=== PATIENT | male | born 1960 | race Caucasian/White ===

== ENCOUNTER 2017-04-05 09:41 | Emergency (ER) | payer OTHER ==
[~2017-04-05] VITALS: Ht 177.8 cm; Wt 68.1 kg
[2017-04-05 09:43] VITALS: BP 135/79; PULSE 109; RESP 16; TEMP 98.3; O2SAT 97
[2017-04-05] MEDS ORDERED: LEVO.05 PO (09:57)
[2017-04-05] MEDS ORDERED: PRIL20TA2 PO (09:57)
[2017-04-05] MEDS ORDERED: SODIUM CHLOR 0.9% 1000 ML INJ 1,000 ML IV SCH (10:03)
--- NOTE | 2017-04-05 10:06 | PD ---
HPI Chief Complaint: GI Complaint Time Seen by Provider: 09:47 Travel History International Travel<30 days: No Contact w/Intl Traveler<30days: No Traveled to known affect area: No History of Present Illness HPI Patient is a 57-year-old male presents with abdominal cramping nausea and nonbilious nonbloody vomiting as well as diarrhea since last night. The patient states she's been worked up for recurring episodes like this which happens about every 6-8 weeks. They're currently visiting from [place] for the holidays. Denies any blood in the stool melena stool, he states she's had colonoscopies last was 2 and half years ago and it got some polyps, states she' s also had several CAT scans and they can't figure out what's going on. 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 No other close sick contacts. No recent antibiotic use. States she's been having chills and sweats but no objective fevers. States his symptoms are moderate to severe, gradually worsening, context as above, associated signs symptoms as above. PFSH Past Medical History GERD: Yes Thyroid Disease: Yes Past Surgical History Cholecystectomy: Yes Social History Alcohol Use: Yes Tobacco Use: Yes (1PPD) Substance Use: No Allergies-Medications (Allergen,Severity, Reaction): Coded Allergies: Penicillins (Verified Allergy, Intermediate, rash, 04/05/17) Reported Meds & Prescriptions Reported Meds & Active Scripts Active Phenergan (Promethazine HCl) 25 Mg Tablet 25 Mg PO Q6H PRN Zofran (Ondansetron HCl) 4 Mg Tab 4 Mg PO Q6HR PRN Omeprazole 40 Mg Cap 40 Mg PO DAILY Bentyl (Dicyclomine HCl) 10 Mg Cap 10 Mg PO TID PRN Reported Prilosec (Omeprazole Magnesium) 20 Mg Tab 40 Mg PO DAILY Synthroid (Levothyroxine Sodium) 50 Mcg Tab 50 Mcg PO DAILY Review of Systems Except as stated in HPI: all other systems reviewed are Neg Physical Exam Narrative GENERAL: Well-developed well-nourished, smells of cigarette smoke in no obvious distress. SKIN: Warm and dry. HEAD: Atraumatic. Normocephalic. EYES: Pupils equal and round. No scleral icterus. No injection or drainage. ENT: No nasal bleeding or discharge. Mucous membranes pink and moist. NECK: Trachea midline. No JVD. CARDIOVASCULAR: Regular rate and rhythm. RESPIRATORY: No accessory muscle use. Clear to auscultation. Breath sounds equal bilaterally. GASTROINTESTINAL: Abdomen soft, non-tender, nondistended. Hepatic and splenic margins not palpable. Bowel sounds normal active. MUSCULOSKELETAL: Extremities without clubbing, cyanosis, or edema. No obvious deformities. NEUROLOGICAL: Awake and alert. No obvious cranial nerve deficits. Motor grossly within normal limits. Five out of 5 muscle strength in the arms and legs. Normal speech. PSYCHIATRIC: Appropriate mood and affect; insight and judgment normal. Data Data Last Documented VS Orders Orders Complete Blood Count With Diff (04/05/17 10:03) Comprehensive Metabolic Panel (04/05/17 10:03) Lipase (04/05/17 10:03) Iv Access Insert/Monitor (04/05/17 10:03) Ecg Monitoring (04/05/17 10:03) Oximetry (04/05/17 10:03) Ondansetron Inj (Zofran Inj) (04/05/17 10:15) Sodium Chlor 0.9% 1000 Ml Inj (Ns 1000 M (04/05/17 10:03) Sodium Chloride 0.9% Flush (Ns Flush) (04/05/17 10:15) Dicyclomine (Bentyl) (04/05/17 10:15) Potassium Chloride (Kcl) (04/05/17 10:45) Promethazine Inj (Phenergan Inj) (04/05/17 11:00) Ed Discharge Order (04/05/17 11:01) Potassium Chlor 10 Meq Premix (Kcl 10 Me (04/05/17 11:15) Labs Laboratory Tests Test 04/05/17 10:10 White Blood Count 10.7 TH/MM3 Red Blood Count 5.20 MIL/MM3 Hemoglobin 15.1 GM/DL Hematocrit 46.3 % Mean Corpuscular Volume 89.1 FL Mean Corpuscular Hemoglobin 29.0 PG Mean Corpuscular Hemoglobin Concent 32.5 % Red Cell Distribution Width 13.1 % Platelet Count 267 TH/MM3 Mean Platelet Volume 8.1 FL Neutrophils (%) (Auto) 75.0 % Lymphocytes (%) (Auto) 13.8 % Monocytes (%) (Auto) 10.7 % Eosinophils (%) (Auto) 0.1 % Basophils (%) (Auto) 0.4 % Neutrophils # (Auto) 8.1 TH/MM3 Lymphocytes # (Auto) 1.5 TH/MM3 Monocytes # (Auto) 1.1 TH/MM3 Eosinophils # (Auto) 0.0 TH/MM3 Basophils # (Auto) 0.0 TH/MM3 CBC Comment DIFF FINAL Differential Comment Blood Urea Nitrogen 22 MG/DL Creatinine 1.10 MG/DL Random Glucose 113 MG/DL Total Protein 7.6 GM/DL Albumin 3.6 GM/DL Calcium Level 8.1 MG/DL Alkaline Phosphatase 105 U/L Aspartate Amino Transf (AST/SGOT) 26 U/L Alanine Aminotransferase (ALT/SGPT) 31 U/L Total Bilirubin 0.8 MG/DL Sodium Level 132 MEQ/L Potassium Level 2.8 MEQ/L Chloride Level 93 MEQ/L Carbon Dioxide Level 28.3 MEQ/L Anion Gap 11 MEQ/L Estimat Glomerular Filtration Rate 69 ML/MIN Lipase 130 U/L MDM Medical Decision Making Medical Screen Exam Complete: Yes Emergency Medical Condition: Yes Differential Diagnosis Chronic colitis, dehydration, gastritis, gastric enteritis, pancreatitis, acute abdomen unlikely. Narrative Course Patient roomed emergency department, he appears quite comfortable in no obvious distress. States that his symptoms are severe, was given medication and on revisit seemed to be sleeping soundly, one on closer approach she actually stated he was feeling no different, only notable abnormality on lab work is some mild dehydration as evidenced by sodium 132 and potassium at 2.8, liter fluid and potassium was given IV after the patient vomited up by mouth potassium. Ultimately after second dose of antiemetics the patient was feeling much better. He inquires that this could be stress, or anxiety. I discussed with him that certainly does not appear to be anything emergent at this time. He's had multiple CAT scans in the past and given his benign abdomen I recommended against this time is stacking up radiation can lead to malignancy. He verbalized understanding and agreement. He is stable for discharge, discussed symptomatic management returned ED criteria follow-up his primary care physician for further workup. Diagnosis Primary Impression: Nausea Med/Other Pt SpecificInfo: Prescription(s) given Scripts Promethazine (Phenergan) 25 Mg Tablet 25 MG PO Q6H Y for NAUSEA OR VOMITING, #20 TAB 0 Refills Prov: El Chinchilla MD 04/05/17 Ondansetron (Zofran) 4 Mg Tab 4 MG PO Q6HR Y for NAUSEA OR VOMITING, #20 TAB 0 Refills Prov: El Chinchilla MD 04/05/17 Omeprazole (Omeprazole) 40 Mg Cap 40 MG PO DAILY, #30 CAP 0 Refills Prov: El Chinchilla MD 04/05/17 Dicyclomine (Bentyl) 10 Mg Cap 10 MG PO TID Y for Bowel Management, #20 CAP 0 Refills Prov: El Chinchilla MD 04/05/17 Disposition: 01 DISCHARGE HOME Condition: Stable El Chinchilla MD Apr 05, 2017 10:06
[2017-04-05] MEDS ORDERED: DICYCLOMINE HCL 10 MG CAP PO ONE (10:15)
[2017-04-05] MEDS ORDERED: SODIUM CHLORIDE 0.9% FLUSH 10 ML FLUSH IV FLUSH PRN (10:15)
[2017-04-05] MEDS ORDERED: ONDANSETRON HCL 4 MG/2 ML VIAL IVP ONE (10:15)
[2017-04-05 10:19] VITALS: O2SAT 95
[2017-04-05 10:23] VITALS: BP 111/89; PULSE 81; RESP 20; O2SAT 99
[2017-04-05 10:29] LABS: AUTOMATED NEUTROPHIL # 8.1 TH/MM3 (1.8-7.7); BASOPHIL % 0.4 % (0.0-2.0); EOSINOPHIL % 0.1 % (0.0-4.0); HEMATOCRIT 46.3 % (39.0-51.0); HEMOGLOBIN 15.1 GM/DL (13.0-17.0); LYMPH % 13.8 % (9.0-44.0); LYMPHOCYTE # 1.5 TH/MM3 (1.0-4.8); MEAN CELL VOLUME 89.1 FL (80.0-100.0); MEAN CORPUSCULAR HGB CONC 32.5 % (32.0-36.0); MEAN PLATELET VOLUME 8.1 FL (7.0-11.0); MONO % 10.7 % (0.0-8.0); MONOCYTE # 1.1 TH/MM3 (0-0.9); PLATELET COUNT 267 TH/MM3 (150-450); RED CELL DISTRIBUTION WIDTH 13.1 % (11.6-17.2); WHITE BLOOD COUNT 10.7 TH/MM3 (4.0-11.0)
[2017-04-05 10:43] LABS: ALBUMIN 3.6 GM/DL (3.4-5.0); ALT (GPT) 31 U/L (12-78); AST (GOT) 26 U/L (15-37); BICARBONATE 28.3 MEQ/L (21.0-32.0); BLOOD UREA NITROGEN 22 MG/DL (7-18); CALCIUM 8.1 MG/DL (8.5-10.1); CHLORIDE 93 MEQ/L (98-107); GLOMERULAR FILTRATION RATE 69 ML/MIN (>89); GLUCOSE,RANDOM 113 MG/DL (74-106); LIPASE 130 U/L (73-393); SODIUM (NA) 132 MEQ/L (136-145)
[2017-04-05] MEDS ORDERED: POTASSIUM CHLORIDE 20 MEQ CONTROLLED RELEASE TAB PO ONE (10:45)
[2017-04-05 10:49] LABS: ALKALINE PHOSPHATASE 105 U/L (45-117); TOTAL BILIRUBIN ADULT 0.8 MG/DL (0.2-1.0); TOTAL PROTEIN 7.6 GM/DL (6.4-8.2)
[2017-04-05] MEDS ORDERED: ZOFR4TAB PO (10:58)
[2017-04-05] MEDS ORDERED: DICY10 PO (10:58)
[2017-04-05] MEDS ORDERED: OMEP40CA2 PO (10:58)
[2017-04-05] MEDS ORDERED: PROMETHAZINE INJ 25 MG/ML VIAL IM ONE (11:00)
[2017-04-05 11:02] VITALS: BP 148/92; PULSE 74; RESP 20; O2SAT 98
[2017-04-05] MEDS ORDERED: POTASSIUM CHLOR 10 MEQ PREMIX 100 ML IV ONE (11:15)
[2017-04-05 11:28] VITALS: BP 141/83; PULSE 74; RESP 20; O2SAT 98
[2017-04-05] MEDS ORDERED: PROM25TA10 PO (11:58)
== END 2017-04-05 12:34 | disposition home or self-care (01) ==
LOC: PHED 09:41
DX: R11.2 Nausea with vomiting, unspecified (principal); R19.7 Diarrhea, unspecified; K21.9 Gastro-esophageal reflux disease without esophagitis; E07.9 Disorder of thyroid, unspecified; F17.200 Nicotine dependence, unspecified, uncomplicated; Z88.0 Allergy status to penicillin; Z79.899 Other long term (current) drug therapy
CPT/HCPCS: 80053; 83690; 85025; 96361; 96372; 96374; 99284; J2405; J2550; J3480; J7030